=== PATIENT | female | born 1990 | race Caucasian/White ===

== ENCOUNTER → 2017-02-23 | Outpatient (CLI) | payer BC, OTHER | END | disposition home or self-care (01) | LOC: C.PAPS 14:53 | PROVIDERS: ATTEND Obstetrics & Gynecology | DX: Z01.419 Encounter for gynecological examination (general) (routine) without abnormal findings (principal) ==

== ENCOUNTER → 2017-02-23 | Outpatient (CLI) | payer BC, OTHER | END | disposition home or self-care (01) | LOC: C.LABSPEC 13:42 | PROVIDERS: ATTEND Obstetrics & Gynecology | DX: Z11.3 Encounter for screening for infections with a predominantly sexual mode of transmission (principal) ==

== ENCOUNTER → 2017-09-02 | Outpatient (CLI) | payer OTHER ==
--- NOTE | 2017-09-03 10:27 | MAMMOGRAPHY REPORT ---
ULTRASOUND OF RIGHT BREAST: 09/02/2017 CLINICAL HISTORY: The patient reports a palpable lump in the right breast for approximately 2 months. The lump has not noticeably changed in size since she first felt. COMPARISON: No prior exams were available for comparison. TECHNIQUE: Real-time targeted ultrasound of the right breast was performed. FINDINGS: Real-time, high resolution targeted ultrasound was performed of the area of the palpable l ump pointed out by the patient, in the right breast at 3:00, approximately 5 cm from the nipple. Son ographically normal tissue is seen in this region, without evidence of a mass or other suspicious son ographic abnormality. IMPRESSION: ACR BI-RADS CATEGORY 2: BENIGN No suspicious sonographic abnormality at the site of the palpable right 3:00 breast lump pointed out by the patient. There is no sonographic evidence of malignancy. Recommend clinical follow-up; any d ecision to biopsy should be based on clinical grounds. The patient was verbally notified of the results. Eva Collins M.D. ah/:09/02/2017 14:15:45 X Ray Technologist: Yvonne JACKSON(Chris)(Red), [facility] letter sent: Normal 1/2 BI-RADS Code: ACR BI-RADS Category 2: Benign
== END | disposition home or self-care (01) ==
LOC: C.MAMM 13:54
PROVIDERS: ATTEND Nurse Practitioner Adult Health
DX: N63.10 Unspecified lump in the right breast, unspecified quadrant (principal)

== ENCOUNTER 2020-05-08 05:42 | Inpatient (IN) ==
--- NOTE | 2020-05-07 18:27 | History and Physical Report ---
DATE OF ADMISSION: 05/08/2020 Planned admission on 05/08/2020. BRIEF HISTORY: The patient is a 30-year-old G1, P0, currently at 39 weeks 4 days gestational age. The patient presented today to discuss options for a recent discovery that she was breech presentation. 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 The patient had previously seen us for care, but discontinued care due to her planned home . At the time of presentation today, the patient was reporting some contractions. Denied vaginal bleeding or leakage of fluid, reported good movement. After thorough discussion of options for breech presentation at term, including an external cephalic version versus a primary were discussed. We discussed the risks and benefits of each of these options in detail and answered all questions of the patient and her partner's satisfaction. 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 Last Pap 2018 which was within normal limits. The patient denies any history of sexually transmitted infections. PAST MEDICAL HISTORY: History of cervical dysplasia. PAST SURGICAL HISTORY: Significant for tonsillectomy and adenoidectomy. FAMILY HISTORY: Noncontributory. CURRENT MEDICATIONS: 1. vitamin. 2. Iron. 3. Tylenol p.r.n. 4. Lactobacillus. ALLERGIES: The patient denies any known drug allergies. SOCIAL HISTORY: The patient denies tobacco, alcohol or illicit drug use. PHYSICAL EXAMINATION: VITAL SIGNS: Today, blood pressure 118/80, weight 157 pounds. GENERAL: The patient is well appearing in no acute distress, alert and oriented x3. CARDIAC: Showed regular rate and rhythm. LUNGS: Clear to auscultation bilaterally. ABDOMEN: Soft, gravid, nontender with fetus in cephalic and breech presentation by Felix's. heart rate was obtained around 145 beats per minute. LOWER EXTREMITIES: Unremarkable bilaterally. ASSESSMENT: The patient is a 30-year-old G1, P0 at 39 weeks 4 days gestational age who presents to discuss the finding of breech presentation at 39+ weeks gestational age with history as noted per HPI. We discussed options for breech presentation at term, including an external cephalic version versus a primary section. The patient after a thorough discussion of risks and benefits of each option, patient has opted to proceed with a primary low transverse section. Consents were reviewed and signed in clinic today. PLAN: 1. Fetus reassuring heart tones today. We will obtain NST prior to proceeding to the OR tomorrow. 2. Delivery plan for a primary for breech presentation as noted above, consents were reviewed and signed today. We will plan for Ancef 2 grams for antibiotic. 3. Vitals within normal limits. 4. hemorrhage risk considered moderate risk due to planned . 5. pyelectasis, we will notify pediatrics.
[2020-05-08] MEDS ORDERED: LACTATED RINGER'S 1,000 ML IV SCH ×3 (05:45→18:00)
[2020-05-08] MEDS ORDERED: CITRIC ACID/SODIUM CITRATE 15 ML UDC PO SCH (06:00)
[2020-05-08] MEDS ORDERED: CEFAZOLIN 2000MG 2,000 MG/15 ML SYR IV SCH (06:00)
[2020-05-08 06:39] LABS: Basophils # (auto) 0.04 K/uL (0-0.2); Basophils % (auto) 0.3 %; Eosinophils # (auto) 0.08 K/uL (0-0.5); Eosinophils % (auto) 0.7 %; Hematocrit (blood only) 36.1 % (37-47); Hemoglobin 12.4 g/dL (12.0-16.0); Immature Granulocytes # (auto) 0.03 K/uL (0.00-0.02); Immature Granulocytes % (auto) 0.3 %; Lymphocytes # (auto) 3.31 K/uL (1.2-3.4); Mean Corpuscular Hemoglobin 32.2 pg (25-34); Mean Corpuscular Volume 93.8 fL (80-100); Mean Platelet Volume 10.8 fL (7.4-10.4); Monocytes # (auto) 0.93 K/uL (0.11-0.59); Monocytes % (auto) 8.1 %; Neutrophils # (auto) 7.04 K/uL (1.4-6.5); Neutrophils % (auto) 61.6 %; Platelet Count 233 K/uL (130-400); RDW Coefficient of Variation 13.1 % (11.5-14.5); Red Blood Count 3.85 M/uL (4.2-5.4); White Blood Count 11.43 K/uL (4.8-10.8)
[2020-05-08] MEDS ORDERED: MoRPHine SULFATE PF 1 MG/ML 10 ML AMP/VIAL ONE (06:45)
[2020-05-08] MEDS ORDERED: fentaNYL citrate 100 MCG/2 ML VIAL ONE (06:45)
--- NOTE | 2020-05-08 06:48 | Anesthesiology Consultation ---
Date of Service May 08, 2020 Assessment & Plan (1) Encounter for pre-operative examination: Chart Review Chart Review: Acceptable Risk for Surgery and Patient NOT seen in Pre Admission Testing Consults Requested none History Surgery Operation Date: 05/08/20 07:30 Proposed Procedures p Section in LD - Allen Lundberg MD Height/Weight Height: 5 ft 2 in Weight: 71.214 kg Allergies Allergy/AdvReac Type Severity Reaction Status Date / Time No Known Allergies Allergy Verified 05/08/20 06:02 Medications Home Medications Medication Instructions Recorded Confirmed Last Taken prenat.vits,jersey,txb-[id number] 1 tab PO DAILY 09/22/19 05/08/20 05/08/20 ferrous sulfate 1 tab PO DAILY 11/24/19 05/08/20 05/07/20 lactobacillus combination no.8 1 tab PO DAILY 03/15/20 05/08/20 05/07/20 Past Medical History Medical History Acne Angular cheilitis Breast mass, right Family history of celiac disease Mother, maternal uncle Hx of varicella LGSIL on Pap smear of cervix Tremor Vaginitis Exercise / Class Metabolic Activity II 4-5 Yardwork/Stairs/Walk up hill Past Family History Family History Grandmother (Maternal) Diabetes Heart disease Hypertension Aunt Endometriosis Grandmother (Paternal) Breast cancer Past Surgical History Surgical History History of tonsillectomy and adenoidectomy Past Anesthesia History No Hx of Anesthesia Complications and No Family Hx of Anesthesia Complications History of PONV No Hx of PONV and No Hx of Motion Sickness Social History Smoking Status: Never smoker Do You Dip or Chew Tobacco: No Hx Alcohol Use: No Hx Substance Use: No Physical Exam Vital Signs Last Vital Signs Temp 36.7 C 05/08/20 06:06 Pulse 82 05/08/20 05:54 Resp 18 05/08/20 06:06 BP 116/72 05/08/20 05:54 Testing Laboratory Results 05/08/20 06:23
[2020-05-08 06:58] LABS: Mean Corpuscular Hgb Conc 34.3 g/dL (32-36)
--- NOTE | 2020-05-08 07:34 | History & Physical Bridge Note ---
Date of Service May 08, 2020 History & Physical Bridge Note I have examined the patient, reviewed the History & Physical and in the interval since the performance of the History & Physical I have noted the following changes of clinical significance: no changes noted
[2020-05-08] MEDS ORDERED: PHENYLEPHRINE 100MCG/ML 5ML SYR ONE (07:43)
[2020-05-08] MEDS ORDERED: OXYTOCIN 10 UNITS/ML VIAL ONE (07:43)
[2020-05-08] MEDS ORDERED: ONDANSETRON INJ 2 MG/ML 2 ML VIAL ONE (07:43)
[2020-05-08] MEDS ORDERED: MEPERIDINE HCL 25 MG/ML CARP/VIAL IV PRN (07:59)
[2020-05-08] MEDS ORDERED: MoRPHine SULFATE PF 1 MG/ML 10 ML AMP/VIAL INT SPINAL ONE (07:59)
[2020-05-08] MEDS ORDERED: NALOXONE HCL 0.08 MG in SYRINGE 1.8 ML IV PRN (07:59)
[2020-05-08] MEDS ORDERED: NALOXONE HCL 0.4 MG/1 ML VIAL/CARP IV PRN (07:59)
[2020-05-08] MEDS ORDERED: LACTATED RINGER'S 500 ML IV PRN (07:59)
[2020-05-08] MEDS ORDERED: MoRPHine SULFATE 2 MG/ML CARP IV PRN (07:59)
[2020-05-08] MEDS ORDERED: DiphenhydrAMINE HCL 50 MG/ML VIAL IV PRN (07:59)
[2020-05-08] MEDS ORDERED: ePHEDrine sulfate 50 MG/ML AMP IV PRN (07:59)
[2020-05-08] MEDS ORDERED: PROMETHAZINE HCL 25 MG in SODIUM CHLORIDE 0.9% 50 ML IV PRN (07:59)
[2020-05-08] MEDS ORDERED: NALOXONE HCL 1 MG in SODIUM CHLORIDE 0.9% 1000ML 1,000 ML IV PRN (07:59)
[2020-05-08] MEDS ORDERED: ONDANSETRON INJ 2 MG/ML 2 ML VIAL IV PRN (07:59)
[2020-05-08] MEDS ORDERED: NO NARCOTICS OR SEDATIVES SCH (08:00)
[2020-05-08] MEDS ORDERED: DC INTRASPINAL MORPHINE SCH (08:00)
[2020-05-08] MEDS ORDERED: SODIUM CHLORIDE 0.9% 1000ML 1,000 ML IV SCH (08:00)
--- NOTE | 2020-05-08 09:01 | Post Operative Brief Note ---
PG Immediate Post Op with CF Date of Surgery May 08, 2020 Pre & Post Diagnosis Operation Date: 05/08/20 07:30 Pre-Op Diagnosis: Primary Section for Breech presentation Post-Op Diagnosis: Same as Pre op Primary Section at 0815 for live baby boy under services of Dr Lundberg. I identified the patient and participated in the time-out.: Yes Procedure Operation Date: 05/08/20 07:30 Actual Procedures p Primary Section in LD for breech presentation of a live male at [address] Lundberg - Allen Lundberg MD Surgeon Allen Lundberg MD Straightener Hand Dr. Jacky Arguelles Estimated Blood Loss 500 Findings Consistent with Post-Op Diagnosis Specimens Specimen Description: A: Placenta (Hold) B: Cord Blood Drains Villeda Catheter (Villeda catheter inserted prior to procedure and monitored by anesthesia throughout procedure.)
--- NOTE | 2020-05-08 09:10 | Anesthesiology Progress Note ---
Date of Service May 08, 2020 Anesthesia Post Procedure Vital Signs Vital Signs: Temp Pulse Resp BP Pulse Ox 05/08/20 09:08 70 123/74 05/08/20 09:06 69 100 05/08/20 07:15 36.8 C 20 05/08/20 07:05 67 121/72 05/08/20 06:06 36.7 C 18 05/08/20 05:54 36.7 C 82 18 116/72 Transfer of Care Handoff Completed per policy Notes Mental Status: alert / awake / arousable and participated in evaluation Patient Amnestic to Procedure: No Nausea / Vomiting: adequately controlled Pain: adequately controlled Airway Patency, RR, SpO2: stable & adequate BP & HR: stable & adequate Hydration State: stable & adequate Neuraxial Anesthesia: was administered and sensory block is resolving Anesthetic Complications: no major complications apparent and Pt Satisfied with anesthetic care
[2020-05-08] MEDS ORDERED: OXYTOCIN 20 UNITS in LACTATED RINGER'S 1,000 ML IV SCH (09:31)
[2020-05-08] MEDS ORDERED: SUPERCREAM 0.870% 15 GM JAR EXT PRN (09:31)
[2020-05-08] MEDS ORDERED: MAGNESIUM HYDROXIDE SUSP 30 ML UDC PO PRN (09:31)
[2020-05-08] MEDS ORDERED: NON-FORMULARY MEDICATION (Ferrous Sulfate 1 TAB) PO SCH (09:31)
[2020-05-08] MEDS ORDERED: LACTOBACILLUS COMBINATION NO 8 PO SCH (09:31)
[2020-05-08] MEDS ORDERED: BENZOCAINE 20% AER SPR 82.5 GM CAN EXT PRN (09:31)
[2020-05-08] MEDS ORDERED: NON-FORMULARY MEDICATION (Prenat.Vits,Cal,Min-Iron-Folic 1 TAB) PO SCH (09:31)
[2020-05-08] MEDS ORDERED: HYDROCORTISONE ACETATE 25 MG SUPP PR PRN (09:31)
[2020-05-08] MEDS ORDERED: DIPHTHERIA/TETANUS/PERTUSSIS 0.5 ML SYR/VIAL IM ONE (09:31)
[2020-05-08] MEDS ORDERED: SENNA 8.6 MG TAB PO PRN (09:31)
[2020-05-08] MEDS: KETOROLAC 30 MG/ML VIAL IV PRN ×3 (10:13→23:18)
--- NOTE | 2020-05-08 10:34 | Operative Report (OR) ---
DATE OF OPERATION: 05/08/2020 PROCEDURE: Primary low transverse section. SURGEON: Allen Lundberg MD. OUTDOOR EDUCATION TEACHER: Jacky Arguelles, PGY-1. PREOPERATIVE DIAGNOSES: 1. Single intrauterine at 39 weeks 5 days gestational age. 2. Breech presentation. POSTOPERATIVE DIAGNOSES: 1. Single intrauterine at 39 weeks 5 days gestational age. 2. Breech presentation. 3. Status post delivery. ESTIMATED BLOOD LOSS: 500 mL. DRAINS: Villeda catheter. FLUIDS: Continuous lactated Ringer. URINE OUTPUT: Per Villeda catheter. COMPLICATIONS: None. FINDINGS: Viable male infant in breech presentation, delivered without complication. The tubes, ovaries and uterus were grossly normal appearing. DESCRIPTION OF PROCEDURE: The patient was taken to the operating room after consents were ensured. Upon presentation, she was properly identified. Spinal anesthesia was obtained without difficulty. A preprocedural timeout was performed, after which the patient was prepped and draped in normal sterile fashion. A Villeda catheter was placed prior to prepping. A Pfannenstiel incision was then made with a knife. This was carried down to underlying fascia with the Bovie. The fascia was nicked at the midline with the knife. The fascia was then extended in each direction with pickups and Martinez scissors. The superior aspect of the fascia was then grasped with Kochers x2, elevated off the underlying rectus muscles using blunt dissection. The inferior aspect of the fascia was then grasped with Kochers x2 and elevated off the underlying fascia using blunt dissection and Martinez scissors. The midline was then entered bluntly and placed on stretch to provide adequate room for delivery. A bladder blade was inserted and a bladder flap was created. A low transverse uterine incision was then made with the knife. The amniotic cavity was then entered bluntly and was notable for clear fluid. The hysterotomy was then stretched to allow adequate room for delivery. The was noted to be in brittney breech position and was delivered through the hysterotomy without difficulty. The delivery was continued to the level of the knee, which was then internally, medially rotated to allow delivery of both legs. The delivery was continued to the level of the axilla and the internal rotation of both arms allowed for delivery of the arms and shoulders. The head of the then quickly followed and was noted to be vigorous upon delivery. A 30-second delayed cord clamping was initiated, after the cord was double clamped and cut. was taken to the waiting nursery staff for evaluation. Cord blood was obtained. Attention was then turned to deliver of the placenta, which was delivered intact, 3-vessel cord, gentle cord traction. The uterus was then exteriorized, wrapped in a wet lap and several passes were made to remove any remaining membranes with a dry lap. Hysterotomy was then reapproximated with 0 Vicryl in continuous running locked stitch. A second imbricating layer of 0 Vicryl was then performed. The posterior cul-de-sac was then cleaned of clots and debris. The uterus was then returned to maternal abdomen. The right and left pericolic gutters were cleaned of clots and debris. The hysterotomy was inspected and noted to be hemostatic. The subcutaneous muscle and fascial layers were inspected and noted to be hemostatic. The fascia was then reapproximated with 0 Vicryl in continuous running stitch. The subcutaneous layers were reapproximated with 2-0 plain in a continuous running stitch. The skin was reapproximated with 3-0 Vicryl in a subcuticular stitch. Dermabond was placed on top. Needle, sponge and instrument counts were correct at the completion of the case. The patient received 2 grams of Ancef prior to incision. I attest to the content of the Intraoperative Record and any orders documented therein. Any exception s are noted below.
[2020-05-08] MEDS: SIMETHICONE 80 MG CHEW PO SCH ×3 (12:49→20:26)
[2020-05-08] MEDS: DOCUSATE SODIUM 100 MG CAP PO SCH (20:26)
[2020-05-09] MEDS ORDERED: ONDANSETRON INJ 2 MG/ML 2 ML VIAL IV PRN (02:00)
[2020-05-09] MEDS ORDERED: DiphenhydrAMINE HCL 50 MG/ML VIAL IV PRN (02:00)
[2020-05-09] MEDS ORDERED: KETOROLAC 30 MG/ML VIAL IV PRN (02:00)
[2020-05-09] MEDS ORDERED: PROMETHAZINE HCL 25 MG in SODIUM CHLORIDE 0.9% 50 ML IV PRN (02:00)
[2020-05-09] MEDS: OXYCODONE/ACETAMINOPHEN 5mg/325mg TAB PO PRN ×5 (04:37→21:45)
[2020-05-09] MEDS ORDERED: MEASLES, MUMPS & RUBELLA VIRUS VIAL SQ ONE (06:20)
--- NOTE | 2020-05-09 06:49 | Obstetrical Progress Note ---
Date of Service <Jacky Shaver MD - Last Filed: 05/09/20 06:51> May 09, 2020 Assessment & Plan <Jacky Shaver MD - Last Filed: 05/09/20 06:51> (1) : - Feels well today. Eating well, voiding well, ambulating well. - Pain well controlled with analgesics. - Routine post care - After discharge will have 6 week followup. Subjective <Jacky Shaver MD - Last Filed: 05/09/20 06:51> Trish is a 30 y/o female ; POD #1 following delivery at 39+ weeks; doing well this morning; moderate abdominal cramping & 6/10 pain when she has cramps well managed on analgesics; voiding well; tolerating meals overnight and able to ambulate some. Has some persistent lochia with some improvement this morning. Review of Systems Constitutional: denies fever, chills, sweat, headache Respiratory: denies shortness of breath, difficulty breathing Cardiac: denies chest pain, palpitations, chest pressure Breast: denies breast pain : denies dysuria Physical Exam <Jacky Shaver MD - Last Filed: 05/09/20 06:51> General: Alert, oriented. No acute distress. Cardiac: Regular rate and rhythm, no murmurs/rubs/gallops. Respiratory: Clear to auscultation bilaterally a/p, no wheezes/rales/rhonchi. No increased work of breathing. Symmetrical chest rise. No respiratory distress. Abdomen: Soft, nontender, nondistended. Bowel sounds present. Uterus: Uterine fundus firm, palpable 1cm below umbilicus. Surgical scar clean and healing well. Lower Extremities: No lower extremity edema or swelling. No deep calf pain. Matt's negative bilaterally. Results & Data <Jacky Shaver MD - Last Filed: 05/09/20 06:51> Vital Signs (Past 12 Hours) Vital Signs Temp Pulse Resp BP Pulse Ox Pulse Ox 05/09/20 03:30 18 96 05/09/20 03:00 37.5 C 84 18 110/72 95 05/09/20 02:30 18 95 05/09/20 01:30 18 97 05/09/20 00:30 18 95 95 05/08/20 23:30 37.2 C 82 18 117/75 99 99 05/08/20 22:31 16 98 05/08/20 21:30 16 97 05/08/20 20:30 16 98 05/08/20 19:34 36.7 C 86 16 122/75 98 05/08/20 19:30 16 99 <Allen Lundberg MD - Last Filed: 05/09/20 08:16> Co-Signing Physician Notes Patient seen and evaluated and agree with the above findings and plan. Day 1 s/p LTCS. Routine care Resident Activity Tracking <Jacky Shaver MD - Last Filed: 05/09/20 06:51> Resident Involvement: Resident Care Provided Care Provided: OB Delivery
[2020-05-09 06:53] LABS: Basophils # (auto) 0.03 K/uL (0-0.2); Basophils % (auto) 0.2 %; Eosinophils # (auto) 0.07 K/uL (0-0.5); Eosinophils % (auto) 0.5 %; Hematocrit (blood only) 31.2 % (37-47); Hemoglobin 10.8 g/dL (12.0-16.0); Immature Granulocytes # (auto) 0.02 K/uL (0.00-0.02); Immature Granulocytes % (auto) 0.2 %; Lymphocytes # (auto) 2.01 K/uL (1.2-3.4); Lymphocytes % (auto) 15.1 %; Mean Corpuscular Hemoglobin 32.3 pg (25-34); Mean Corpuscular Hgb Conc 34.6 g/dL (32-36); Mean Corpuscular Volume 93.4 fL (80-100); Mean Platelet Volume 10.5 fL (7.4-10.4); Monocytes # (auto) 1.13 K/uL (0.11-0.59); Monocytes % (auto) 8.5 %; Neutrophils # (auto) 10.04 K/uL (1.4-6.5); Neutrophils % (auto) 75.5 %; Platelet Count 185 K/uL (130-400); RDW Standard Deviation 44.8 fL (36.4-46.3); Red Blood Count 3.34 M/uL (4.2-5.4)
--- NOTE | 2020-05-09 07:57 | Anesthesiology Progress Note ---
Date of Service May 09, 2020 Anesthesia Post Procedure Vital Signs Vital Signs: Temp Pulse Pulse Resp BP BP Pulse Ox 05/09/20 03:30 18 96 05/09/20 03:00 37.5 C 84 18 110/72 95 05/09/20 02:30 18 95 05/09/20 01:30 18 97 05/09/20 00:30 18 95 05/08/20 23:30 37.2 C 82 18 117/75 99 05/08/20 22:31 16 98 05/08/20 21:30 16 97 05/08/20 20:30 16 98 05/08/20 19:34 36.7 C 86 16 122/75 98 05/08/20 19:30 16 99 05/08/20 18:30 16 99 05/08/20 17:30 16 98 05/08/20 16:30 16 98 05/08/20 15:52 36.9 C 71 16 129/81 98 05/08/20 15:30 16 98 05/08/20 14:34 16 99 05/08/20 13:35 16 99 05/08/20 12:35 36.7 C 81 16 130/75 97 05/08/20 11:39 18 99 05/08/20 11:35 37.6 C H 73 18 123/79 99 05/08/20 11:31 83 100 05/08/20 11:28 79 125/72 05/08/20 11:26 83 98 05/08/20 11:21 85 98 05/08/20 11:18 73 124/72 05/08/20 11:16 80 99 05/08/20 11:11 82 100 05/08/20 11:08 36.9 C 82 20 127/77 05/08/20 11:06 85 99 05/08/20 11:01 77 100 05/08/20 10:58 72 130/81 05/08/20 10:56 77 100 05/08/20 10:51 75 99 05/08/20 10:48 73 136/82 05/08/20 10:46 77 100 05/08/20 10:41 76 100 05/08/20 10:38 73 125/77 05/08/20 10:36 79 100 05/08/20 10:35 18 05/08/20 10:31 72 100 05/08/20 10:28 73 129/79 05/08/20 10:26 78 100 05/08/20 10:21 85 100 05/08/20 10:18 81 134/81 05/08/20 10:16 81 99 05/08/20 10:11 76 100 05/08/20 10:08 73 132/77 05/08/20 10:06 76 100 05/08/20 10:01 84 100 05/08/20 10:00 18 05/08/20 09:58 73 134/81 05/08/20 09:56 74 100 05/08/20 09:51 75 100 05/08/20 09:50 18 05/08/20 09:48 75 132/77 05/08/20 09:46 76 100 05/08/20 09:41 77 99 05/08/20 09:40 76 20 100 05/08/20 09:38 81 118/80 05/08/20 09:36 78 98 05/08/20 09:31 74 98 05/08/20 09:30 77 20 99 05/08/20 09:29 77 131/60 05/08/20 09:26 73 97 05/08/20 09:21 75 96 05/08/20 09:20 68 122/74 05/08/20 09:16 71 99 05/08/20 09:11 68 100 05/08/20 09:10 36.4 C L 20 05/08/20 09:08 70 123/74 05/08/20 09:06 69 100 Pulse Ox 05/09/20 03:30 05/09/20 03:00 05/09/20 02:30 05/09/20 01:30 05/09/20 00:30 95 05/08/20 23:30 99 05/08/20 22:31 05/08/20 21:30 05/08/20 20:30 05/08/20 19:34 05/08/20 19:30 05/08/20 18:30 05/08/20 17:30 05/08/20 16:30 05/08/20 15:52 05/08/20 15:30 05/08/20 14:34 05/08/20 13:35 05/08/20 12:35 05/08/20 11:39 05/08/20 11:35 05/08/20 11:31 05/08/20 11:28 05/08/20 11:26 05/08/20 11:21 05/08/20 11:18 05/08/20 11:16 05/08/20 11:11 05/08/20 11:08 05/08/20 11:06 05/08/20 11:01 05/08/20 10:58 05/08/20 10:56 05/08/20 10:51 05/08/20 10:48 05/08/20 10:46 05/08/20 10:41 05/08/20 10:38 05/08/20 10:36 05/08/20 10:35 05/08/20 10:31 05/08/20 10:28 05/08/20 10:26 05/08/20 10:21 05/08/20 10:18 05/08/20 10:16 05/08/20 10:11 05/08/20 10:08 05/08/20 10:06 05/08/20 10:01 05/08/20 10:00 05/08/20 09:58 05/08/20 09:56 05/08/20 09:51 05/08/20 09:50 05/08/20 09:48 05/08/20 09:46 05/08/20 09:41 05/08/20 09:40 05/08/20 09:38 05/08/20 09:36 05/08/20 09:31 05/08/20 09:30 05/08/20 09:29 05/08/20 09:26 05/08/20 09:21 05/08/20 09:20 05/08/20 09:16 05/08/20 09:11 05/08/20 09:10 05/08/20 09:08 05/08/20 09:06 Pain Intensity Bilateral Abdomen: Pain Intensity: 4 Transfer of Care Handoff Completed per policy Notes Mental Status: alert / awake / arousable and participated in evaluation Nausea / Vomiting: adequately controlled Pain: adequately controlled Airway Patency, RR, SpO2: stable & adequate BP & HR: stable & adequate Hydration State: stable & adequate Neuraxial Anesthesia: was administered and sensory block resolved Anesthetic Complications: no major complications apparent and Pt Satisfied with anesthetic care Notes: Patient denies headache this morning. Has been up walking without weakness or residual numbness. Patient encouraged to contact anesthesia for any concerns or new headache
[2020-05-09] MEDS ORDERED: NON-FORMULARY MEDICATION (Breast Pump 1 UNITS) SCH (08:15)
[2020-05-09] MEDS: SIMETHICONE 80 MG CHEW PO SCH ×4 (09:09→20:26)
[2020-05-09] MEDS: FERROUS SULFATE 325 MG TAB PO SCH (09:10)
[2020-05-09] MEDS: IBUPROFEN 600 MG TAB PO PRN ×4 (09:10→21:45)
[2020-05-09] MEDS: DOCUSATE SODIUM 100 MG CAP PO SCH ×2 (09:10→20:26)
[2020-05-09] MEDS: PRENATAL VITAMIN 1 TAB PO SCH (09:10)
[2020-05-09] MEDS ORDERED: bisacodyL 5 MG TABEC PO SCH (20:00)
[2020-05-10] MEDS: OXYCODONE/ACETAMINOPHEN 5mg/325mg TAB PO PRN ×4 (02:15→17:01)
[2020-05-10] MEDS: IBUPROFEN 600 MG TAB PO PRN ×4 (02:16→17:02)
--- NOTE | 2020-05-10 06:22 | Obstetrical Progress Note ---
Date of Service <Jacky Shaver MD - Last Filed: 05/10/20 06:52> May 10, 2020 Assessment & Plan <Jacky Shaver MD - Last Filed: 05/10/20 06:52> (1) : - Feels well today. Eating well, voiding well, ambulating well. - Pain well controlled with analgesics. - Routine post care - After discharge will have 6 week followup. Subjective <Jacky Shaver MD - Last Filed: 05/10/20 06:52> Trish is a 30 y/o female ; POD #2 following delivery at 39+ weeks; doing well this morning; light abdominal cramping & 3/10 pain well managed on analgesics; voiding well; tolerating meals overnight and able to ambulate some. Has some persistent lochia with some improvement this morning. Review of Systems Constitutional: denies fever, chills, sweat, headache Respiratory: denies shortness of breath, difficulty breathing Cardiac: denies chest pain, palpitations, chest pressure Breast: denies breast pain : denies dysuria Physical Exam <Jacky Shaver MD - Last Filed: 05/10/20 06:52> General: Alert, oriented. No acute distress. Cardiac: Regular rate and rhythm, no murmurs/rubs/gallops. Respiratory: Clear to auscultation bilaterally a/p, no wheezes/rales/rhonchi. No increased work of breathing. Symmetrical chest rise. No respiratory distress. Abdomen: Soft, nontender, nondistended. Bowel sounds present. Uterus: Uterine fundus firm, palpable 2cm below umbilicus. Surgical scar clean and healing well. Lower Extremities: No lower extremity edema or swelling. No deep calf pain. Matt's negative bilaterally. Results & Data <Jacky Shaver MD - Last Filed: 05/10/20 06:52> Vital Signs (Past 12 Hours) Vital Signs Temp Pulse Resp BP Pulse Ox 05/09/20 23:20 36.4 C L 83 20 126/78 05/09/20 19:50 37.0 C 80 18 143/80 H 99 <Jenny Garcia DO - Last Filed: 05/10/20 09:17> Co-Signing Physician Notes Resident Physician Supervision Note: I was present with Dr. Arguelles during the history and exam. I discussed the case with the resident and agree with the findings and plan as documented in the note. Any exceptions or clarifications are listed here: POD#2 doing well. DC home. Instructions reviewed. Rx percocet #20 tabs. Documented By: Jenny Garcia DO Resident Activity Tracking <Jacky Shaver MD - Last Filed: 05/10/20 06:52> Resident Involvement: Resident Care Provided Care Provided: OB Delivery
[2020-05-10 06:59] LABS: Hematocrit (blood only) 31.3 % (37-47); Hemoglobin 10.8 g/dL (12.0-16.0)
[2020-05-10] MEDS: DOCUSATE SODIUM 100 MG CAP PO SCH (08:08)
[2020-05-10] MEDS: SIMETHICONE 80 MG CHEW PO SCH ×2 (08:08→13:57)
[2020-05-10] MEDS: FERROUS SULFATE 325 MG TAB PO SCH (08:08)
[2020-05-10] MEDS: PRENATAL VITAMIN 1 TAB PO SCH (08:08)
[2020-05-10] MEDS ORDERED: bisacodyL 10 MG SUPP PR PRN (08:48)
--- NOTE | 2020-05-19 12:14 | Discharge Summary (DS) ---
PROCEDURES WHILE ADMITTED: Primary low transverse section for breech presentation. HOSPITAL COURSE: The patient was admitted for the above noted procedure. The procedure was performed without complication. The patient remained in house for routine postoperative and care until postoperative day 2, at which time the patient met criteria for discharge and desired to go home. The patient was provided both written and verbal discharge instructions and will plan for followup at 6 weeks or as needed.
== END 2020-05-10 18:10 | disposition home or self-care (01) | DRG 807 ==
LOC: 4S1 05:42 → EDSTATUS 07:30 → 4S2 11:39
DX: Z22.330 Carrier of Group B streptococcus; O32.1XX1 Maternal care for breech presentation, fetus 1; Z37.0 Single live birth; Z3A.39 39 weeks gestation of pregnancy